=== PATIENT | male | born 1950 | race Caucasian/White ===

== ENCOUNTER 2023-07-31 06:00 | Outpatient (RCR) | payer OTHER, SELFPAY | END 2023-08-01 23:59 | disposition home or self-care (01) | LOC: TPT 06:00 | PROVIDERS: Visit Provider Family Medicine | DX: R26.9 Unspecified abnormalities of gait and mobility (principal) | CPT/HCPCS: 97163 ==

== ENCOUNTER 2023-08-02 06:00 | Outpatient (RCR) | payer OTHER, SELFPAY | END 2023-08-31 23:59 | disposition home or self-care (01) | LOC: TPT 06:00 | PROVIDERS: PCP Family Medicine; Visit Provider Family Medicine | DX: R26.9 Unspecified abnormalities of gait and mobility (principal) | CPT/HCPCS: 97110 ==

== ENCOUNTER 2023-08-02 07:29 | Outpatient (CLI) | payer OTHER, SELFPAY ==
--- NOTE | 2023-08-02 | USCV_ITS ---
Franck Age: 73 Gender: M : 1950 Exam Date: 08/02/2023 08:00 Ordering Phys: Cathryn Brown MD Technologist: Exam Location: [facility] [place] Indication: screening HISTORY: Diameter (cm) AP x Transverse x Length Velocity (cm/s) Waveform Prox Aorta: 2.13 x 2.58 x 77.00 Biphasic Mid Aorta: 2.22 x 2.51 x 76.40 Biphasic Distal Aorta: 2.22 x 2.62 x 57.30 Biphasic Right Iliac Prox: 1.23 x 0.88 x 93.10 Biphasic Left Iliac Prox: 1.13 x 1.42 x 92.50 Biphasic Stent Prox Landing x x Aneurysmal Sac Max x x Lt Lat Sac Dim Rt Lat Sac Dim Stent Dist Landing x x Right Iliac Stent x x Left Iliac Stent x x Right Renal Art Left Renal Art FINDINGS: CONCLUSIONS No evidence of abdominal aortic or bilateral iliac aneurysm. Mild atheromatous disease within the abdominal aorta. Erik Rowan MD (Electronically Signed) Final Date: 02 August 2023 16:35 S
== END 2023-08-02 07:30 | disposition home or self-care (01) ==
LOC: RAD 07:30
PROVIDERS: PCP Family Medicine; Visit Provider Family Medicine
DX: Z13.6 Encounter for screening for cardiovascular disorders (principal); Z87.891 Personal history of nicotine dependence; I70.0 Atherosclerosis of aorta
CPT/HCPCS: 76706

== ENCOUNTER → 2023-09-12 12:32 | Outpatient (BNVA) | payer OTHER, SELFPAY | PROVIDERS: PCP Family Medicine; Visit Provider Dermatology | DX: L57.0 Actinic keratosis (principal); L73.8 Other specified follicular disorders; L82.1 Other seborrheic keratosis; D18.01 Hemangioma of skin and subcutaneous tissue; L72.0 Epidermal cyst; L57.8 Other skin changes due to chronic exposure to nonionizing radiation | CPT/HCPCS: 17000; 99203 ==

== ENCOUNTER 2023-09-22 08:29 | Outpatient (RCR) | payer OTHER, SELFPAY | END 2023-09-22 23:59 | disposition home or self-care (01) | LOC: TPT 08:29 | PROVIDERS: PCP Family Medicine; Visit Provider Family Medicine | DX: R26.9 Unspecified abnormalities of gait and mobility (principal) | CPT/HCPCS: 97110 ==

== ENCOUNTER 2025-01-01 11:05 | Outpatient (CLI) | payer OTHER, SELFPAY ==
[2025-01-01 11:33] LABS: Basophils % 0.5 %; Eosinophils # 0.1 10^3/uL (0.0-0.8); Eosinophils % 1.5 %; Hematocrit 48.3 % (37-53); Lymphocytes # 2.4 10^3/uL (0.8-4.8); Lymphocytes % 29.6 %; Mean Corpuscular HGB Conc 32.5 g/dL (30-55); Mean Corpuscular Volume 89.1 fl (82-101); Mean Platelet Volume 9.3 fL (7.4-10.4); Monocytes # 0.7 10^3/uL (0.2-0.9); Monocytes % 8.6 %; Neutrophils # 4.82 10^3/uL (1.8-7.7); Neutrophils % 59.2 %; Nucleated Red Blood Cells % 0 %; Platelet Count 224 10^3/cmm (157-399); Red Blood Count 5.42 10^6/uL (3.85-5.65); Red Cell Distribution Width 14.9 % (12.1-15.1); White Blood Count 8.14 10^3/uL (3.29-11.43)
[2025-01-01 11:50] LABS: Albumin Level 4.4 g/dL (3.5-5.2); Anion Gap 17.1 (5-19); Blood Urea Nitrogen 31 mg/dL (8-23); Calcium 9.6 mg/dL (8.5-10.5); Carbon Dioxide 24 mmol/L (22-29); Chloride 102 mmol/L (98-107); Glucose 117 mg/dL (65-115); Phosphorus 3.5 mg/dL (2.5-4.5); Potassium 4.1 mmol/L (3.5-5.1); Sodium 139 mmol/L (136-145)
[2025-01-01 11:58] LABS: Calcium 9.9 mg/dL (8.5-10.5)
[2025-01-01 12:04] LABS: Parathyroid Hormone 23.2 pg/mL (15-65)
== END 2025-01-01 11:06 | disposition home or self-care (01) ==
LOC: LAB 11:08
PROVIDERS: PCP Family Medicine; Visit Provider Registered Nurse
DX: N18.31 Chronic kidney disease, stage 3a (principal)
CPT/HCPCS: 36415; 80069; 82310; 83970; 85025

== ENCOUNTER 2025-01-02 10:04 | Outpatient (CLI) | payer OTHER, SELFPAY ==
[2025-01-02 11:25] LABS: Creatinine Urine, Random 105 mg/dL (39-259); Microalbum Creatinine Ratio Ur 19 mg/dL (0-20); Microalbumin Random Urine 2 ug/dL (0-20)
== END 2025-01-02 10:05 | disposition home or self-care (01) ==
LOC: LAB 10:08
PROVIDERS: PCP Family Medicine; Visit Provider Registered Nurse
DX: N18.31 Chronic kidney disease, stage 3a (principal)
CPT/HCPCS: 82044